=== PATIENT | female | born 1955 | race Caucasian/White ===

== ENCOUNTER 2019-04-13 17:34 | Emergency (ER) | payer SELFPAY ==
[~2019-04-13] VITALS: Ht 152.4 cm; Wt 65.0 kg
[2019-04-13 19:36] VITALS: BP 117/78
== END 2019-04-13 19:50 | disposition home or self-care (01) | DRG 563 ==
LOC: ED 17:34
DX: S63.502A Unspecified sprain of left wrist, initial encounter (principal); S63.501A Unspecified sprain of right wrist, initial encounter; S63.92XA Sprain of unspecified part of left wrist and hand, initial encounter; S63.91XA Sprain of unspecified part of right wrist and hand, initial encounter; S60.212A Contusion of left wrist, initial encounter; S60.211A Contusion of right wrist, initial encounter; S60.222A Contusion of left hand, initial encounter; S60.221A Contusion of right hand, initial encounter; S20.211A Contusion of right front wall of thorax, initial encounter; S90.112A Contusion of left great toe without damage to nail, initial encounter; W01.0XXA Fall on same level from slipping, tripping and stumbling without subsequent striking against object, initial encounter; Y93.01 Activity, walking, marching and hiking; Y92.512 Supermarket, store or market as the place of occurrence of the external cause

== ENCOUNTER 2021-05-22 09:19 | Emergency (ER) | payer OTHER, MEDICARE ==
[~2021-05-22] VITALS: Ht 152.4 cm; Wt 63.0 kg
[2021-05-22 10:39] VITALS: BP 124/78
== END 2021-05-22 10:51 | disposition home or self-care (01) | DRG 552 ==
LOC: ED 09:19
DX: M54.2 Cervicalgia (principal); I10 Essential (primary) hypertension; K21.9 Gastro-esophageal reflux disease without esophagitis; V43.53XA Car driver injured in collision with pick-up truck in traffic accident, initial encounter

== ENCOUNTER 2023-02-06 23:13 | Inpatient (IN) | payer MEDICARE ==
[~2023-02-06] VITALS: Ht 152.4 cm; Wt 51.9 kg
[2023-02-06 23:36] VITALS: BP 138/83
[2023-02-06 23:45] VITALS: BP 126/84
[2023-02-07] VITALS: BP 154/103
[2023-02-07 00:39] LABS: BASO% 0.2 % (0-3); EOS% 0.2 % (0-8); HEMATOCRIT 44.5 % (37.0-47.0); HEMOGLOBIN 14.3 g/dl (12.0-16.0); IMMATURE GRANULOCYTES 0.1 % (0.0-5.0); LYMPH% 10.7 % (15-41); MEAN CELL VOLUME 83.8 fL CALC (80.0-100.0); MEAN CORPUSCULAR HGB 26.9 pG CALC (26.0-32.0); MEAN CORPUSCULAR HGB CONC 32.1 g/dL CAL (32.0-36.0); MONO% 3.5 % (2-13); NEUT# 9.09 thou/uL (2.00-7.15); NEUT% 85.3 % (42-76); RED BLOOD COUNT 5.31 mill/uL (4.20-5.60); RED CELL DISTRI WIDTH 13.3 % (11.5-15.5)
[2023-02-07 00:52] LABS: ALBUMIN 4.6 g/dL (3.2-5.0); ALKALINE PHOSPHATASE 83 u/l (38-126); ANION GAP 14 (6-22 (CALC)); BILIRUBIN, TOTAL 0.6 mg/dL (0.02-1.3); BUN 23 mg/dL (8-23); BUN/CREATININE RATIO 27 (12-20 (CALC)); CARBON DIOXIDE 25 mmol/l (22-30); CHLORIDE 107 mmol/l (95-108); CREATININE 0.8 mg/dL (0.5-1.0); GFR FOR AFR.AMER. > 60 ML/MIN (>=60 (CALC)); GFR OTHER RACES > 60 ML/MIN (>=60 (CALC)); LIPASE 37 u/l (23-300); POTASSIUM 3.4 mmol/l (3.5-5.1); SGOT/AST 28 u/l (9-36); SODIUM 142 mmol/l (137-146); TOTAL PROTEIN 7.8 g/dL (6.3-8.2)
[2023-02-07 02:48] LABS: URINE BILIRUBIN - DIPSTICK NEGATIVE (NEGATIVE); URINE BLOOD DIPSTICK TRACE-INTACT (NEGATIVE); URINE COLOR YELLOW; URINE GLUCOSE - DIPSTICK NEGATIVE (NEGATIVE); URINE KETONE 40 mg/dL (NEGATIVE); URINE LEUK ESTERASE NEGATIVE (NEGATIVE); URINE NITRITE - DIPSTICK NEGATIVE (Negative); URINE PH 5.5 (4.5-8.0); URINE PROTEIN - DIPSTICK NEGATIVE (NEG-TRACE); URINE UROBILINOGEN - DIPSTICK 0.2 E.U./dL (0.2)
[2023-02-07] MEDS ORDERED: XTAMPZA ER18 MG (02:51)
[2023-02-07] MEDS ORDERED: XTAMPZA ER18 MG PO (02:54)
[2023-02-07] MEDS ORDERED: PERCOCET 10/31 COMBO PO (02:56)
[2023-02-07] MEDS ORDERED: OMEPRAZOLE DR40 MG PO (02:57)
[2023-02-07] MEDS ORDERED: AMLODIPINE BESYL5 MG PO (02:59)
[2023-02-07 03:30] VITALS: BP 123/76
[2023-02-07 07:22] VITALS: BP 145/84
[2023-02-07] MEDS ORDERED: DIPHEN/ATROP2.5 MG PO (08:43)
[2023-02-07 14:05] VITALS: BP 126/76
[2023-02-07 14:28] VITALS: BP 126/76
[2023-02-07 19:01] VITALS: BP 136/81
[2023-02-08 00:21] VITALS: BP 134/84
[2023-02-08 04:36] VITALS: BP 125/74
[2023-02-08 06:54] VITALS: BP 119/68
[2023-02-08 10:54] VITALS: BP 122/62
== END 2023-02-08 14:43 | disposition home or self-care (01) | DRG 389 ==
LOC: ED 23:13 → MS2 02-07 02:05
PROVIDERS: Emergency Medicine; ADMIT Surgery; ATTEND Surgery
DX: K56.0 Paralytic ileus (principal); F11.20 Opioid dependence, uncomplicated; I10 Essential (primary) hypertension; K21.9 Gastro-esophageal reflux disease without esophagitis; K59.03 Drug induced constipation; T40.2X5A Adverse effect of other opioids, initial encounter; M43.10 Spondylolisthesis, site unspecified; Z85.41 Personal history of malignant neoplasm of cervix uteri; Z90.49 Acquired absence of other specified parts of digestive tract; Z90.710 Acquired absence of both cervix and uterus
CPT/HCPCS: Q9967